=== PATIENT | male | born 1980 | race Caucasian/White ===

== ENCOUNTER 2018-03-19 14:57 | Emergency (ER) | payer MEDICAID, OTHER ==
--- NOTE | 2018-03-19 15:35 | EDPHY ---
H & P Time Seen by Provider: 03/19/18 15:01 HPI/ROS: HPI Right lower extremity pain. History of DVT. 37-year-old male by private vehicle. He reports that he recently drove up to [place] and back. [place] He reports that he developed right lower extremity pain. He describes this as pain just proximal and lateral to the posterior aspect of the knee. He has a prior history of DVTs. He is currently not on any anticoagulation. He has not had a fever. He denies any significant swelling. No history of trauma. ROS: Constitutional: No fever, no chills. No weakness. Musculoskeletal: No back pain. No neck pain. As above. Skin: No rashes. Neurological: No focal weakness or altered sensation. Past medical history: Thoracic outlet syndrome, DVT right upper extremity in 2006, 1st rib resection in 2006. Social history: Nonsmoker. No alcohol. Here by himself. Physical Exam: General Appearance: Alert, no distress. This patient is responding to questions appropriately and in full sentences. This patient appears well- hydrated and well-nourished. Eyes: Pupils equal and round no pallor or injection. No lid edema, erythema or injection. Right lower extremity exam: No asymmetric swelling in comparison to the left lower extremity. No calf tenderness on palpation. No palpable cords. Negative Joanie sign. Area of tenderness is posterior lateral aspect of the distal thigh just proximal to the knee. There is no ecchymosis, swelling, erythema, edema noted on palpation of this area. No warmth. No mass. The right lower extremity is neurovascularly intact. Neurological: Motor sensory function is grossly intact. Cranial nerves are normal. Gait is normal. Skin: Warm and dry, no rashes. Extremities are symmetrical. All joints range without pain or impingement. Psychiatric: No agitation. No depression. Database: EKG: Imaging: Right lower extremity ultrasound: Negative for DVT or other significant pathology. Results were discussed with staff radiologist Dr. Louis Laboy. Procedures: Emergency department course: Triage vital signs reviewed. He is mildly tachycardic. Vital signs otherwise normal. He tells me he is anxious. Right lower extremity Doppler ultrasound to be obtained. The patient endorses. 4:30 p.m., patient re-evaluated. Resting comfortably at this time. Results of his ultrasound discussed with him. He feels comfortable going home at this time. Follow-up and return to emergency department precautions reviewed with him. All of his questions were answered. He was discharged in good condition. Differential Diagnosis: The differential diagnosis on this patient includes but is not limited to right lower extremity muscle strain. DVT, Barreto cyst, cellulitis, abscess unlikely. This represents a partial list of diagnoses considered. These considerations are based on history, physical exam, past history, reassessment and diagnostic testing. Smoking Status: Never smoked Constitutional: Initial Vital Signs Temperature (C) 36.5 C 03/19/18 15:05 Heart Rate 103 H 03/19/18 15:05 Respiratory Rate 16 03/19/18 15:05 Blood Pressure 105/74 03/19/18 15:05 O2 Sat (%) 95 03/19/18 15:05 O2 Delivery Mode Room Air Allergies/Adverse Reactions: No Known Allergies Allergy (Verified 03/19/18 15:03) Home Medications: Medication Instructions Recorded NK [No Known Home Meds] 08/27/14 Departure - Departure Disposition: Home, Routine, Self-Care Clinical Impression: Right leg pain Condition: Good Instructions: Leg Pain (ED) Additional Instructions: Read and follow provided instructions. Follow-up with your primary care physician in 1-2 days for re-evaluation as needed. Return to the emergency department for worsening symptoms or other serious concerns. Referrals: NONE *PRIMARY CARE P,. [Primary Care Provider] - As per Instructions
[2018-03-19 16:51] VITALS: BP 110/70
== END 2018-03-19 16:49 | disposition home or self-care (01) ==
LOC: CED 14:57
DX: M79.604 Pain in right leg (principal); Z86.718 Personal history of other venous thrombosis and embolism
CPT/HCPCS: 93971-PO

== ENCOUNTER 2018-11-14 17:18 | Emergency (ER) | payer MEDICAID ==
--- NOTE | 2018-11-14 17:37 | EDPHY ---
H & P Time Seen by Provider: 11/14/18 17:27 HPI/ROS: CHIEF COMPLAINT: Sinusitis HISTORY OF PRESENT ILLNESS: The patient is a 38-year-old man who comes to the emergency department complaining of sinus pressure , pain and discharge. No fever. No difficulty breathing. Dry cough. No headache. No neck stiffness. No sore throat. He has had the symptoms for about the last 5 weeks. He has been using Sudafed as well as Benadryl and nasal sprays without significant improvement. He is here requesting antibiotics. Severity: Moderate Modifying factors: None REVIEW OF SYSTEMS: Constitutional: denies: chills, fever, recent illness, recent injury EENTM: See HPI denies: blurred vision, double vision Respiratory: denies: cough, shortness of breath Cardiac: denies: chest pain, irregular heart rate, lightheadedness, palpitations Gastrointestinal/Abdominal: denies: abdominal pain, diarrhea, nausea, vomiting, blood streaked stools Genitourinary: denies: dysuria, frequency, hematuria, pain Musculoskeletal: denies: joint pain, muscle pain Skin: denies: lesions, rash, jaundice, bruising Neurological: denies: headache, numbness, paresthesia, tingling, dizziness, weakness Hematologic/Lymphatic: denies: blood clots, easy bleeding, easy bruising Immunologic/allergic: denies: HIV/AIDS, transplant 10 systems reviewed and negative except as noted EXAM: GENERAL: Well-appearing, well-nourished and in no acute distress. HEAD: Atraumatic, normocephalic. EYES: Pupils equal round and reactive to light, extraocular movements intact, sclera anicteric, conjunctiva are normal. ENT: TMs normal, nares congested, oropharynx clear without exudates. Moist mucous membranes. Slightly tender ethmoid sinus bilateral NECK: Normal range of motion, supple without lymphadenopathy or JVD. LUNGS: Breath sounds clear to auscultation bilaterally and equal. No wheezes rales or rhonchi. HEART: Regular rate and rhythm without murmurs, rubs or gallops. ABDOMEN: Soft, nontender, normoactive bowel sounds. No guarding, no rebound. No masses appreciated. BACK: No CVA tenderness, no spinal tenderness, step-offs or deformities EXTREMITIES: Normal range of motion, no pitting or edema. No clubbing or cyanosis. NEUROLOGICAL: Cranial nerves II through XII grossly intact. Normal speech, normal gait. 5/5 strength, normal movement in all extremities, normal sensation , normal reflexes PSYCH: Normal mood, normal affect. SKIN: Warm, dry, normal turgor, no visible rashes or lesions. 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 Surg-oral,1st rib resection-2006 - Family History Significant Family History: No pertinent family hx - Social History Smoking Status: Never smoked Constitutional: Initial Vital Signs Temperature (C) 36.6 C 11/14/18 17:30 Heart Rate 91 11/14/18 17:30 Respiratory Rate 12 11/14/18 17:30 Blood Pressure 133/96 H 11/14/18 17:30 O2 Sat (%) 95 11/14/18 17:30 O2 Delivery Mode Room Air Allergies/Adverse Reactions: No Known Allergies Allergy (Verified 03/19/18 15:03) Home Medications: Medication Instructions Recorded Amoxicillin/Clavulanate Pot 875 mg PO BID #14 tab 11/14/18 [Augmentin 875Mg] Medical Decision Making ED Course/Re-evaluation: The patient's symptoms are consistent with sinusitis. He has suffered for several weeks and [id number] medications are not helping. He is requesting antibiotics. Will start on Augmentin. He will follow up with his primary doctor if his symptoms are not improving. Discussed indications for returning. Differential Diagnosis: Partial list of the Differential diagnosis considered include but were not limited to; sinusitis, upper respiratory tract infection, viral syndrome and although unlikely based on the history and physical exam, I also considered sepsis, pneumonia, meningitis, pharyngitis, abscess. I discussed these differential diagnoses and the plan with the patient as well as the usual and expected course. The patient understands that the diagnosis is provisional and that in medicine we are not always correct and that further workup is often warranted. Usual and customary warnings were given. All of the patient's questions were answered. The patient was instructed to return to the emergency department should the symptoms at all worsen or return, otherwise to followup with the physician as we discussed. Departure - Departure Disposition: Home, Routine, Self-Care Clinical Impression: Sinusitis, acute ethmoidal Qualifiers: Recurrence: non-recurrent Qualified Code(s): J01.20 - Acute ethmoidal sinusitis , unspecified Condition: Fair Instructions: Sinusitis (ED) Referrals: NONE *PRIMARY CARE P,. [Primary Care Provider] - As per Instructions Melanie Saavedra MD [Medical Doctor] - As per Instructions Prescriptions: Amoxicillin/Clavulanate Pot [Augmentin 875Mg] 875 mg PO BID #14 tab
[2018-11-14 17:39] VITALS: BP 133/96
== END 2018-11-14 17:49 | disposition home or self-care (01) ==
LOC: CED 17:18
DX: J01.20 Acute ethmoidal sinusitis, unspecified (principal)
CPT/HCPCS: 99283-ER

== ENCOUNTER 2018-12-06 16:43 | Emergency (ER) | payer MEDICAID ==
--- NOTE | 2018-12-06 17:06 | EDPHY ---
H & P Stated Complaint: Shortness of breath Time Seen by Provider: 12/06/18 16:54 HPI/ROS: CHIEF COMPLAINT: Shortness of breath HISTORY OF PRESENT ILLNESS: The patient is a 38-year-old healthy man who states that he has been dealing with sinus congestion for the last several weeks. He was seen here by me a few weeks ago and was started on Augmentin. He states that this did not help. His primary doctor's ordered a CT of his sinuses but this is not been done yet. Today he was walking up a hill and felt like some fluid ran from his nose down into his chest and then he felt short of breath for a few moments. His states that he looked pale and they turned around and walked back home. He states that he felt like he was having an anxiety attack. By the time they got here his symptoms have resolved. He is saturating 98% on room air with respiratory rate of 12 and normal heart rate. He has been afebrile. No sore throat. No wheezing. No history of pulmonary or cardiac disease. No coughing. 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 He states that this does compress his nose a lot and make him feel like he is kind of suffocating. He was not exposed any particulate that he is aware of without his filter. Severity: Moderate Modifying factors: None REVIEW OF SYSTEMS: Constitutional: denies: chills, fever, recent illness, recent injury EENTM: denies: blurred vision, double vision, nose congestion Respiratory: See HPI Cardiac: denies: chest pain, irregular heart rate, lightheadedness, palpitations Gastrointestinal/Abdominal: denies: abdominal pain, diarrhea, nausea, vomiting, blood streaked stools Genitourinary: denies: dysuria, frequency, hematuria, pain Musculoskeletal: denies: joint pain, muscle pain Skin: denies: lesions, rash, jaundice, bruising Neurological: denies: headache, numbness, paresthesia, tingling, dizziness, weakness Hematologic/Lymphatic: denies: blood clots, easy bleeding, easy bruising Immunologic/allergic: denies: HIV/AIDS, transplant 10 systems reviewed and negative except as noted EXAM: GENERAL: Well-appearing, well-nourished and in no acute distress. HEAD: Atraumatic, normocephalic. EYES: Pupils equal round and reactive to light, extraocular movements intact, sclera anicteric, conjunctiva are normal. ENT: TMs normal, nares patent, oropharynx clear without exudates. Moist mucous membranes. NECK: Normal range of motion, supple without lymphadenopathy or JVD. LUNGS: Breath sounds clear to auscultation bilaterally and equal. No wheezes rales or rhonchi. HEART: Regular rate and rhythm without murmurs, rubs or gallops. ABDOMEN: Soft, nontender, normoactive bowel sounds. No guarding, no rebound. No masses appreciated. BACK: No CVA tenderness, no spinal tenderness, step-offs or deformities EXTREMITIES: Normal range of motion, no pitting or edema. No clubbing or cyanosis. NEUROLOGICAL: Cranial nerves II through XII grossly intact. Normal speech, normal gait. 5/5 strength, normal movement in all extremities, normal sensation , normal reflexes PSYCH: Normal mood, normal affect. SKIN: Warm, dry, normal turgor, no visible rashes or lesions. 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 Surg-oral,1st rib resection-2006 - Family History Significant Family History: No pertinent family hx - Social History Smoking Status: Never smoked Alcohol Use: Sober Drug Use: None Constitutional: Initial Vital Signs Temperature (C) 36.9 C 12/06/18 16:47 Heart Rate 80 12/06/18 16:47 Respiratory Rate 18 12/06/18 16:47 Blood Pressure 142/101 H 12/06/18 16:47 O2 Sat (%) 98 12/06/18 16:47 O2 Delivery Mode Room Air Allergies/Adverse Reactions: No Known Allergies Allergy (Verified 12/06/18 16:46) Home Medications: Medication Instructions Recorded Amoxicillin/Clavulanate Pot 875 mg PO BID #14 tab 11/14/18 [Augmentin 875Mg] Medical Decision Making ED Course/Re-evaluation: 5:12 p.m. the patient called me back into the room. He tells me that he thinks he was just having an anxiety attack and is declining imaging or EKG. His vital signs are reassuring as is his exam. Discussed indications for returning. Differential Diagnosis: Partial list of the Differential diagnosis considered include but were not limited to; anxiety attack, sinusitis, bronchitis and although unlikely based on the history and physical exam, I also considered new, acute coronary disease , reactive airway disease, pneumonitis. I discussed these differential diagnoses and the plan with the patient as well as the usual and expected course. The patient understands that the diagnosis is provisional and that in medicine we are not always correct and that further workup is often warranted. Usual and customary warnings were given. All of the patient's questions were answered. The patient was instructed to return to the emergency department should the symptoms at all worsen or return, otherwise to followup with the physician as we discussed. Departure - Departure Disposition: Home, Routine, Self-Care Clinical Impression: Anxiety, Shortness of breath Condition: Fair Instructions: Dyspnea (ED), Anxiety (ED) Referrals: [facility] [Other] - 2-3 days, if not improved
[2018-12-06 17:27] VITALS: BP 107/73
== END 2018-12-06 17:25 | disposition home or self-care (01) ==
LOC: CED 16:43
DX: F41.9 Anxiety disorder, unspecified (principal); R06.02 Shortness of breath
CPT/HCPCS: 71046-PO; 99282-ER

== ENCOUNTER → 2018-12-10 | Outpatient (CLI) | payer MEDICAID | LOC: EMCIMAGING 15:17 | PROVIDERS: ATTEND Physician Assistant | DX: Z87.09 Personal history of other diseases of the respiratory system (principal) | CPT/HCPCS: 70486-PN ==